=== PATIENT | female | born 1990 | race Two or more races ===

== ENCOUNTER 2018-04-06 20:18 | Emergency (ER) | payer SELFPAY ==
[2018-04-06] MEDS ORDERED: MORPHINE SULFATE 10 MG/ML INJ IV ONE (21:02)
[2018-04-06] MEDS ORDERED: NORMAL SALINE 1000 ML 1,000 ML IV ONE (21:02)
[2018-04-06] MEDS ORDERED: ONDANSETRON HCL INJ/PF 4 MG/2 ML SDV IV ONE (21:02)
--- NOTE | 2018-04-06 21:04 | ER Document Report ---
ED GI/ - General Chief Complaint: Abdominal Pain Stated Complaint: abdominal pain Time Seen by Provider: 04/06/18 20:48 Notes: Patient is a 28-year-old female that comes to the emergency department for chief complaint of a swollen area over the right abdomen/pelvis. She started noticing this about 7 days ago. She states that she has had some abdominal pain, she has vomited twice today. She vomited yesterday as well. She reports some upper abdominal pain now as well. She denies fever or chills, vaginal bleeding or discharge, dysuria. Past medical history of . Denies any medical history otherwise. Patient is Australian-speaking, brought her friend, requesting he translate for her. - Related Data Allergies/Adverse Reactions: No Known Allergies Allergy (Verified 04/06/18 20:20) Past Medical History - General Information source: Patient, Relative - Social History Smoking Status: Never Smoker Chew tobacco use (# tins/day): No Drug Abuse: None Lives with: Family Family History: Reviewed & Not Pertinent Patient has suicidal ideation: No Patient has homicidal ideation: No - Medical History Medical History: Negative Renal/ Medical History: Denies: Hx Peritoneal Dialysis Surgical Hx: Negative - Immunizations Immunizations up to date: Yes Hx Diphtheria, Pertussis, Tetanus Vaccination: Yes Review of Systems - Review of Systems Constitutional: No symptoms reported EENT: No symptoms reported Cardiovascular: No symptoms reported Respiratory: No symptoms reported Gastrointestinal: See HPI Genitourinary: See HPI Female Genitourinary: No symptoms reported Musculoskeletal: No symptoms reported Skin: No symptoms reported Hematologic/Lymphatic: No symptoms reported Neurological/Psychological: No symptoms reported Physical Exam - Vital signs Vitals: Temp Pulse Resp BP Pulse Ox 98.7 F 67 18 123/65 98 04/06/18 20:38 04/06/18 20:38 04/06/18 20:38 04/06/18 20:38 04/06/18 20:38 - Notes Notes: GENERAL: Alert, interacts well. No acute distress. HEAD: Normocephalic, atraumatic. EYES: Pupils equal, round, and reactive to light. Extraocular movements intact. ENT: Oral mucosa moist, tongue midline. Oropharynx unremarkable. Airway patent. Nares patent, no nasal septal hematoma, TM's intact. NECK: Full range of motion. Supple. Trachea midline. LUNGS: Clear to auscultation bilaterally, no wheezes, rales, or rhonchi. No respiratory distress. HEART: Regular rate and rhythm. No murmur ABDOMEN: Tenderness in the right pelvic area which is specific and reproducible. No McBurney's tenderness. No guarding of the abdomen. Nontender abdomen otherwise. No distention. Normal bowel sounds. GENITOURINARY: Deferred EXTREMITIES: Moves all 4 extremities spontaneously. No edema, normal radial and dorsalis pedis pulses bilaterally. No cyanosis. BACK: no cervical, thoracic, lumbar midline tenderness. No saddle anesthesia, normal distal neurovascular exam. NEUROLOGICAL: Alert and oriented x3. Normal speech. [cranial nerves II through XII grossly intact]. PSYCH: Normal affect, normal mood. SKIN: Warm, dry, normal turgor. No rashes or lesions noted. Course - Re-evaluation Re-evalutation: Patient is alert and well-appearing. She does have right pelvic examination tenderness, however McBurney's point is nontender, abdomen is benign, there is no guarding. Patient states she had upper abdominal pain and vomiting but her upper abdomen is benign. CBC, chemistry, lipase, urinalysis are all unremarkable. Ultrasound does show multiple cyst on the right ovary without mass, large cyst, free fluid, or torsion. I discussed this with patient in detail. I discussed recommendations, follow-up, and return precautions with patient in detail. Answered questions to the best of my ability. Asymptomatic on my reevaluation. Patient and significant other state satisfaction and agreement. Stable at time of discharge. - Vital Signs Vital signs: Temp Pulse Resp BP Pulse Ox 98.2 F 69 18 128/72 H 99 04/07/18 00:17 04/07/18 00:17 04/07/18 00:17 04/07/18 00:17 04/07/18 00:17 - Laboratory Result Diagrams: 04/06/18 21:27 04/06/18 21:27 Laboratory results interpreted by me: 04/06/18 04/06/18 21:27 21:27 Carbon Dioxide 21 L Creatinine 0.48 L Urine Urobilinogen 2.0 H Ur Leukocyte Esterase TRACE H Discharge - Discharge Clinical Impression: Lower abdominal pain Disposition: HOME, SELF-CARE Additional Instructions: Narvaez ecografa muestra que tiene quistes en el ovario derecho. Estos pueden causar dolor, keshia son pequeos y deben desaparecer solos con el tiempo. No se observ nina otros malos descubrimientos. [place] el Phenergan para las nuseas, tome el naproxeno para el dolor si es necesario. Adrian un seguimiento con la referencia de la oficina indicada para obtener ms informacin. Regrese si empeora (si tiene un dolor intenso que empeora, no puede dejar de vomitar, tiene fiebre o si algo no est yan). Prescriptions: Naproxen 500 mg PO BID PRN #20 tablet PRN Reason: Promethazine HCl [Phenergan 25 mg Tablet] 25 mg PO Q6H PRN #20 tablet PRN Reason: Referrals: [facility] [Provider Group] - Follow up as needed
[2018-04-06 21:48] LABS: ABSOLUTE BASOPHILS # (AUTO) 0.1 10^3/uL (0.0-0.2); ABSOLUTE EOSINOPHILS # (AUTO) 0.1 10^3/uL (0.0-0.6); ABSOLUTE LYMPHOCYTES (AUTO) 2.4 10^3/uL (0.5-4.7); ABSOLUTE MONOCYTES (AUTO) 0.8 10^3/uL (0.1-1.4); ABSOLUTE NEUT (AUTO) 2.7 10^3/uL (1.7-8.2); EOSINOPHILS % (AUTO) 2.3 % (0-6); HEMATOCRIT 37.6 % (36.0-47.0); HEMOGLOBIN 13.1 g/dL (12.0-15.5); LYMPHOCYTES % (AUTO) 39.1 % (13-45); MEAN CORPUSCULAR HEMOGLOBIN 32.9 pg (27.0-33.4); MEAN CORPUSCULAR HGB CONC 34.8 g/dL (32.0-36.0); MEAN CORPUSCULAR VOLUME 94 fl (80-97); MONOCYTES % (AUTO) 12.6 % (3-13); PLATELET COUNT 281 10^3/uL (150-450); RED BLOOD COUNT 3.99 10^6/uL (3.72-5.28); RED CELL DISTRIBUTION WIDTH 13.3 % (11.5-14.0); TOTAL CELLS COUNTED % (AUTO) 100 %
[2018-04-06 21:53] LABS: APPEARANCE,URINE SLIGHTLY-CLOUDY; BILIRUBIN,URINE NEGATIVE (NEGATIVE); COLOR,URINE YELLOW; GLUCOSE, URINE NEGATIVE (NEGATIVE); KETONES,URINE NEGATIVE (NEGATIVE); LEUKOCYTE ESTERASE,URINE TRACE (NEGATIVE); NITRITE,URINE NEGATIVE (NEGATIVE); PROTEIN,URINE NEGATIVE (NEGATIVE); URINE SPECIFIC GRAVITY 1.029
[2018-04-06 22:10] LABS: ALANINE AMINOTRANSFERASE 35 U/L (9-52); ALBUMIN 4.3 g/dL (3.5-5.0); ALKALINE PHOSPHATASE 122 U/L (38-126); ANION GAP 10 (5-19); ASPARTATE AMINO TRANSFERASE 28 U/L (14-36); BILIRUBIN,DIRECT 0.1 mg/dL (0.0-0.4); BILIRUBIN,TOTAL 0.5 mg/dL (0.2-1.3); BLOOD UREA NITROGEN 12 mg/dL (7-20); CALCIUM 8.8 mg/dL (8.4-10.2); CARBON DIOXIDE 21 mmol/L (22-30); CHLORIDE 107 mmol/L (98-107); GLUCOSE 97 mg/dL (75-110); LIPASE 101.1 U/L (23-300); SODIUM 137.8 mmol/L (137-145); TOTAL PROTEIN 7.3 g/dL (6.3-8.2)
--- NOTE | 2018-04-06 23:45 | RADIOLOGY REPORT (SQ) ---
EXAM DESCRIPTION: US TRANSVAGINAL COMPLETED DATE/TME: 04/06/2018 21:02 CLINICAL HISTORY: 28 years, Female, swelling in right pelvis, pain, vomiting COMPARISON: None. TECHNIQUE: Transverse and longitudinal transvaginal sonographic images of the pelvis LIMITATIONS: None. FINDINGS: The uterus measures 9.4 x 5.4 x 4.0 cm. The endometrium measures 9.6 mm in thickness. The myometrium is homogenous. The right ovary measures 5.0 x 3.7 x 3.8 cm, the left 2.3 x 1.7 x 1.6 cm. Doppler and spectral analysis with color flow was utilized. Arterial and venous flow to both ovaries. No solid adnexal mass. Right ovarian cysts are noted, the largest measures 2.3 x 2.2 cm, likely a dominant follicle. No solid adnexal mass. No free fluid IMPRESSION: Follicular change to the right ovary. Remainder unremarkable copyright 2010 [employer]- All Rights Reserved
[2018-04-06] MEDS ORDERED: HYDROCODONE/ACETAMINOPHEN 5-325 MG (6 TAB/ER DISP) PO PRN (23:59)
[2018-04-07 00:18] VITALS: BP 128/72
== END 2018-04-07 00:19 | disposition home or self-care (01) ==
LOC: ER 20:18
DX: R10.30 Lower abdominal pain, unspecified (principal); R19.00 Intra-abdominal and pelvic swelling, mass and lump, unspecified site; R11.10 Vomiting, unspecified
CPT/HCPCS: 99284; 96361; 96374; 96375; 36415; 83690; 85025; 81025; 80053; 81001; 76830; 93976; J2270; J2405; J7030

== ENCOUNTER 2018-05-19 18:51 | Emergency (ER) | payer SELFPAY ==
--- NOTE | 2018-05-19 21:44 | ER Document Report ---
ED Medical Screen (RME) - General Chief Complaint: Vaginal Pain Stated Complaint: VAGINAL PAIN Time Seen by Provider: 05/19/18 21:36 Notes: Patient is a 28-year-old female coming in today with chief complaint that she fell and possibly injured her pelvic area. She has had very little bit of bleeding since the injury. It seems that she is concerned whether her intrauterine device fell out as a result of the fall. I have treated and performed a rapid initial assessment of this patient. A comprehensive ED assessment and evaluation of the patient, analysis of test results and completion of medical decision making process will be conducted by additional ED providers. PHYSICAL EXAMINATION: GENERAL: Well-appearing, well-nourished and in no acute distress. A&Ox4. Answers questions appropriately. LUNGS: Breath sounds clear to auscultation bilaterally and equal. No wheezes rales or rhonchi. HEART: Regular rate and rhythm without murmurs, rubs, gallops. ABDOMEN: Soft, nondistended abdomen. No guarding, no rebound. Normal bowel sounds present. No CVA tenderness bilaterally. + mild epigastric tenderness (cannot elicit thorough abd exam w/o table, however). Extremities: No cyanosis, clubbing, or edema b/l. NEUROLOGICAL: Normal speech, normal gait. PSYCH: Normal mood, normal affect. TRAVEL OUTSIDE OF THE [place] IN LAST 30 DAYS: No - Related Data Allergies/Adverse Reactions: No Known Allergies Allergy (Verified 05/19/18 18:52) Past Medical History Renal/ Medical History: Denies: Hx Peritoneal Dialysis - Immunizations Immunizations up to date: Yes Hx Diphtheria, Pertussis, Tetanus Vaccination: Yes Physical Exam - Vital signs Vitals: Temp Pulse Resp BP Pulse Ox 99.8 F 99 16 110/51 L 97 05/19/18 19:53 05/19/18 19:53 05/19/18 19:53 05/19/18 19:53 05/19/18 19:53 Course - Vital Signs Vital signs: Temp Pulse Resp BP Pulse Ox 99.8 F 99 16 110/51 L 97 05/19/18 19:53 05/19/18 19:53 05/19/18 19:53 05/19/18 19:53 05/19/18 19:53
[2018-05-19 22:23] LABS: APPEARANCE,URINE CLOUDY; BILIRUBIN,URINE NEGATIVE (NEGATIVE); COLOR,URINE AMBER; GLUCOSE, URINE NEGATIVE (NEGATIVE); KETONES,URINE NEGATIVE (NEGATIVE); LEUKOCYTE ESTERASE,URINE SMALL (NEGATIVE); NITRITE,URINE NEGATIVE (NEGATIVE); PROTEIN,URINE 100 mg/dL (NEGATIVE); URINE SPECIFIC GRAVITY 1.031
--- NOTE | 2018-05-20 01:57 | ER Document Report ---
ED GI/ - General Chief Complaint: Vaginal Pain Stated Complaint: VAGINAL PAIN Time Seen by Provider: 05/20/18 01:34 Primary Care Provider: SAVANNA BROWN [Primary Care Provider] - Follow up as needed Mode of Arrival: Ambulatory Information source: Patient Notes: HISTORY OF PRESENT ILLNESS: Patient is a 28-year-old female with no significant past medical history who p resents with vaginal pain after mechanical fall 2 days ago. Of note, the patient reports having an IUD placed 2 years ago and is concerned that she could have either injured this area or the IUD could have fallen out. She denies seeing passage of tissue or foreign bodies. Location: Vaginal Onset: Sudden 2 days ago Alleviation: None Provocation: None, stimulation Quality: Aching, burning Radiation: None Severity: Mild Timing: Constant History of abdominal surgery: None Associated symptoms: Slight vaginal bleeding but no discharge Last bowel movement: Today and normal Last menstrual period: "I do not remember" REVIEW OF SYSTEMS: CONSTITUTIONAL : Denies fever or chills, no sweats. Denies recent illness. EENT: Denies eye, ear, throat, or mouth pain or symptoms. Denies nasal or sinus congestion. CARDIOVASCULAR: Denies chest pain. Denies swelling of the legs. RESPIRATORY: Denies cough, cold, or chest congestion. Denies shortness of breath or difficulty breathing. Denies wheezing. GASTROINTESTINAL: Positive for abdominal pain. Denies nausea, vomiting, or diarrhea. Denies constipation. GENITOURINARY: Denies difficulty urinating, painful urination, burning, frequency, or blood in urine. FEMALE GENITOURINARY: Positive for vaginal bleeding. Denies vaginal discharge. MUSCULOSKELETAL: Denies neck or back pain or joint pain or swelling. SKIN: Denies rash or skin lesions. HEMATOLOGIC : Denies easy bruising or bleeding. LYMPHATIC: Denies swollen, enlarged glands. NEUROLOGICAL: Denies altered mental status or loss of consciousness. Denies headache. Denies weakness or paralysis or loss of use of either side. Denies problems with gait or speech. Denies sensory or motor loss. PSYCHIATRIC: Denies anxiety or stress or depression. All other systems reviewed and negative. PHYSICAL EXAMINATION: GENERAL: Well-appearing, well-nourished and in no acute distress. HEAD: Atraumatic, normocephalic. No scalp deformity, depression, or crepitance. EYES: Pupils are 3 mm and equal/round/reactive to light, extraocular movements intact, sclera anicteric, conjunctiva are normal. ENT: Nares patent bilaterally, oropharynx. Moist mucous membranes. No tonsil hypertrophy. NECK: Normal range of motion, supple without lymphadenopathy. LUNGS: Breath sounds present, equal, and clear to auscultation bilaterally. No wheezes, rales, or rhonchi. HEART: Regular rate and rhythm without murmurs, rubs, or gallops. 2+ peripheral pulses. Normal capillary refill. ABDOMEN: Soft, nontender, nondistended. Normoactive bowel sounds. No guarding, no rebound. No masses appreciated. BACK: Normal contour, no midline tenderness. Rectal exam deferred. GENITAL/PELVIC: Patient genitalia appears slightly erythematous including the labia majora and minora, dry blood on the introitus without active bleeding, no visible foreign body. EXTREMITIES: Normal range of motion, no pitting or edema. No cyanosis. NEUROLOGICAL: No focal neurological deficits. Moves all extremities spontaneo usly and on command. PSYCH: Normal mood, normal affect. No suicidal thoughts/ideations. No homocidal thoughts/ideations. No hallucinations. SKIN: Warm, dry, normal turgor, no rashes or lesions noted. ASSESSMENT AND PLAN: This patient is a 28-year-old female who presents with vaginal pain and bleeding after mechanical fall. Patient is concerned her IUD could have been dislodged. 1. Will obtain urine, vaginal ultrasound, and reassess. 2. Will give oral hydrocodone for pain relief. TRAVEL OUTSIDE OF THE [place] IN LAST 30 DAYS: No - Related Data Allergies/Adverse Reactions: No Known Allergies Allergy (Verified 05/19/18 18:52) Past Medical History - General Information source: Patient - Social History Smoking Status: Never Smoker Chew tobacco use (# tins/day): No Frequency of alcohol use: None Drug Abuse: None Lives with: Family Family History: Reviewed & Not Pertinent Patient has suicidal ideation: No Patient has homicidal ideation: No - Medical History Medical History: Negative - Past Medical History Cardiac Medical History: Reports: None Pulmonary Medical History: Reports: None EENT Medical History: Reports: None Neurological Medical History: Reports: None Endocrine Medical History: Reports: None Renal/ Medical History: Reports: None. Denies: Hx Peritoneal Dialysis Malignancy Medical History: Reports: None GI Medical History: Reports: None Musculoskeletal Medical History: Reports None Skin Medical History: Reports None Psychiatric Medical History: Reports: None Traumatic Medical History: Reports: None Infectious Medical History: Reports: None Surgical Hx: Negative Past Surgical History: Reports: None - Immunizations Immunizations up to date: Yes Hx Diphtheria, Pertussis, Tetanus Vaccination: Yes History of Influenza Vaccine for 12/2016 - 05/2017 Season: Unknown Physical Exam - Vital signs Vitals: Temp Pulse Resp BP Pulse Ox 99.8 F 99 16 110/51 L 97 05/19/18 19:53 05/19/18 19:53 05/19/18 19:53 05/19/18 19:53 05/19/18 19:53 Course - Re-evaluation Re-evalutation: 05/20/18 04:15 Ultrasound shows no evidence of retained intrauterine device. Patient will be referred back to her oil well perforator operator. She will be discharged home with return precautions and follow-up. Both the patient and her , with aid of electronic sugar cane planter machine operator, voiced understanding and agreeing with the plan. - Vital Signs Vital signs: Temp Pulse Resp BP Pulse Ox 98.9 F 92 18 117/70 98 05/20/18 01:27 05/20/18 01:27 05/20/18 01:27 05/20/18 01:27 05/20/18 01:27 - Laboratory Laboratory results interpreted by me: 05/19/18 21:40 Urine Protein 100 H Urine Blood LARGE H Urine Urobilinogen 4.0 H Ur Leukocyte Esterase SMALL H - Diagnostic Test Radiology reviewed: Image reviewed, Reports reviewed Discharge - Discharge Clinical Impression: Vaginal pain Condition: Good Disposition: HOME, SELF-CARE Instructions: Abdominal Pain ([facility]) Additional Instructions: You have been evaluated in the Emergency Department for vaginal pain. While here, you had an ultrasound that did not show an IUD, which means it probably came out. It is now safe to be discharged home. Please follow-up with your oil well perforator operator as instructed in 1 week to be rechecked. Return to the Emergency Department if you experience worsening bleeding, worsening pain, or any other concerning symptoms. Prescriptions: Tramadol HCl [Ultram 50 mg Tablet] 50 mg PO Q6HP PRN #28 tablet PRN Reason: For Pain Referrals: LOCALMD,NO [Primary Care Provider] - Follow up as needed Print Language: Georgian
[2018-05-20] MEDS ORDERED: HYDROCODONE/ACETAMINOPHEN 5-325 MG TABLET PO ONE (02:38)
--- NOTE | 2018-05-20 04:11 | RADIOLOGY REPORT (SQ) ---
EXAM DESCRIPTION: US TRANSVAGINAL COMPLETED DATE/TME: 05/20/2018 02:38 CLINICAL HISTORY: 28 years, Female, Vaginal bleeding COMPARISON: None. TECHNIQUE: Transverse and longitudinal transvaginal sonographic images of the pelvis LIMITATIONS: None. FINDINGS: The uterus measures 8.7 x 5.7 x 4.1 cm. The endometrium measures 10 mm in thickness. Myometrium is homogenous. Nabothian cysts are noted. Right ovary measures 3.9 x 3.7 x 3.7 cm. Left ovary measures 2.6 x 2.2 x 1.8 cm. Doppler and spectral analysis with color flow shows arterial and venous flow to both ovaries. Simple appearing right ovarian cyst/dominant follicle measuring 3.7 x 3.2 cm. No solid adnexal mass. No free fluid IMPRESSION: Probable dominant follicle of the right ovary. Remainder unremarkable copyright 2010 [employer]- All Rights Reserved
[2018-05-20 04:47] VITALS: BP 112/65
== END 2018-05-20 04:44 | disposition home or self-care (01) ==
LOC: ER 18:51
DX: R10.2 Pelvic and perineal pain (principal); N93.9 Abnormal uterine and vaginal bleeding, unspecified
CPT/HCPCS: 76830; 81001; 81025; 99284

== ENCOUNTER 2018-05-21 12:06 | Emergency (ER) | payer SELFPAY ==
[2018-05-21 12:14] VITALS: BP 117/63
[2018-05-21] MEDS ORDERED: OXYCODONE-ACETAMINOPHEN 5-325 MG TABLET PO ONE (13:18)
--- NOTE | 2018-05-21 13:18 | ER Document Report ---
ED Medical Screen (RME) - General Chief Complaint: Vaginal Pain Stated Complaint: ABSCESS/VAGINAL AREA Time Seen by Provider: 05/21/18 13:15 Primary Care Provider: STEPHANIE,SAVANNA [Primary Care Provider] - Follow up as needed Notes: Patient is a 28-year-old female that presents to the emergency department for chief complaint of vaginal swelling and drainage. Patient was seen recently, placed on tramadol, advised to follow-up with [facility], has been having worsening pain since then came back to the ED today, patient is primarily Tuvaluan-speaking. ROS: Other than noted above, the 12 point review of systems was reviewed with the patient and were negative, all pertinent findings are included in the HPI. PHYSICAL EXAMINATION: Vital signs reviewed. GENERAL: Well-appearing, well-nourished and in no acute distress. HEAD: Atraumatic, normocephalic. EYES: Pupils equal round extraocular movements intact, conjunctiva are normal. ENT: Nares patent NECK: Normal range of motion CV: Heart regular rate and rhythm LUNGS: No respiratory distress Musculoskeletal: Normal range of motion NEUROLOGICAL: Normal speech PSYCH: Normal mood, normal affect. MDM: Patient seen and examined for rapid initial assessment. Vital signs reviewed. A comprehensive ED assessment and evaluation of the patient, analysis of test results and completion of the medical decision making process will be conducted by additional ED providers. *Note is created using voice recognition software and may contain spelling, syntax or grammatical errors. TRAVEL OUTSIDE OF THE [place] IN LAST 30 DAYS: No - Related Data Allergies/Adverse Reactions: No Known Allergies Allergy (Verified 05/19/18 18:52) Past Medical History Renal/ Medical History: Denies: Hx Peritoneal Dialysis - Immunizations Immunizations up to date: Yes Hx Diphtheria, Pertussis, Tetanus Vaccination: Yes History of Influenza Vaccine for 12/2016 - 05/2017 Season: Unknown Physical Exam - Vital signs Vitals: Temp Pulse Resp BP Pulse Ox 99.0 F 105 H 16 117/63 96 05/21/18 12:12 05/21/18 12:12 05/21/18 12:12 05/21/18 12:12 05/21/18 12:12 Course - Vital Signs Vital signs: Temp Pulse Resp BP Pulse Ox 99.0 F 105 H 16 117/63 96 05/21/18 12:12 05/21/18 12:12 05/21/18 12:12 05/21/18 12:12 05/21/18 12:12 Doctor's Discharge - Discharge Referrals: LOCALMD,NO [Primary Care Provider] - Follow up as needed
[2018-05-21] MEDS ORDERED: NORMAL SALINE 1000 ML 1,000 ML IV ONE (15:15)
[2018-05-21] MEDS ORDERED: FENTANYL CITRATE INJ/PF 100 MCG/2 ML AMPUL IV ONE (15:15)
[2018-05-21] MEDS ORDERED: CLINDAMYCIN 600 MG/D5W RTU 600 MG/50 ML RTUPB IV ONE (15:21)
--- NOTE | 2018-05-21 15:23 | ER Document Report ---
ED GI/ - General Chief Complaint: Vaginal Pain Stated Complaint: ABSCESS/VAGINAL AREA Time Seen by Provider: 05/21/18 13:15 Primary Care Provider: CASSIE RODRÍGUEZ MD [ACTIVE STAFF] - Follow up in 1 week Mode of Arrival: Ambulatory Information source: Patient Notes: Patient states that she fell in the shower 6 days ago injuring the vaginal area. Patient states that she developed increased pain and swelling to the vaginal area 3 days ago. Patient complains of pain with urination and blood in the urine. Patient denies any fever. TRAVEL OUTSIDE OF THE [place] IN LAST 30 DAYS: No - HPI Patient complains to provider of: Dysuria, Vaginal pain Onset: Other - 6 days ago Timing/Duration: Worse Quality of pain: Sharp Pain Level: 5 Vaginal bleeding (Compared to normal period): Chicken Raiser Associated symptoms: Dysuria, Urinary frequency, Vaginal discharge. denies: Fever, Urinary hesitancy Exacerbated by: Movement Relieved by: Denies Similar symptoms previously: No Recently seen / treated by doctor: Yes - Related Data Allergies/Adverse Reactions: No Known Allergies Allergy (Verified 05/19/18 18:52) Past Medical History - General Information source: Patient - Social History Smoking Status: Never Smoker Frequency of alcohol use: None Drug Abuse: None Occupation: None Lives with: Family Family History: Reviewed & Not Pertinent Patient has suicidal ideation: No Patient has homicidal ideation: No - Medical History Medical History: Negative Renal/ Medical History: Denies: Hx Peritoneal Dialysis Surgical Hx: Negative - Immunizations Immunizations up to date: Yes Hx Diphtheria, Pertussis, Tetanus Vaccination: Yes Review of Systems - Review of Systems Constitutional: No symptoms reported EENT: No symptoms reported Cardiovascular: No symptoms reported Respiratory: No symptoms reported. denies: Cough Gastrointestinal: No symptoms reported. denies: Abdominal pain, Vomiting Genitourinary: Dysuria, Frequency Female Genitourinary: Vaginal discharge, Vaginal bleeding Musculoskeletal: No symptoms reported Skin: Other - Swelling to the perineum Hematologic/Lymphatic: No symptoms reported Neurological/Psychological: No symptoms reported Physical Exam - Vital signs Vitals: Temp Pulse Resp BP Pulse Ox 99.0 F 105 H 16 117/63 96 05/21/18 12:12 05/21/18 12:12 05/21/18 12:12 05/21/18 12:12 05/21/18 12:12 - General General appearance: Appears well, Alert In distress: None - HEENT Head: Normocephalic Eyes: Normal Conjunctiva: Normal Neck: Normal, Supple. No: Lymphadenopathy - Respiratory Respiratory status: No respiratory distress Chest status: Nontender Breath sounds: Normal. No: Rales, Rhonchi, Stridor, Wheezing Chest palpation: Normal - Cardiovascular Rhythm: Tachycardia Heart sounds: S1 appreciated, S2 appreciated Murmur: No - Abdominal Inspection: Normal Distension: No distension Bowel sounds: Normal - Genitourinary External exam: Other - Patient with foul-smelling spontaneously draining abscess to the clitoris and urethral area - Back Back: Normal, Nontender - Extremities General upper extremity: Normal inspection, Normal strength General lower extremity: Normal inspection, Normal strength - Neurological Neuro grossly intact: Yes Cognition: Normal Heidrick Coma Scale Eye Opening: Spontaneous Heidrick Coma Scale Verbal: Oriented Heidrick Coma Scale Motor: Obeys Commands Heidrick Coma Scale Total: 15 - Psychological Associated symptoms: Normal affect, Normal mood - Skin Skin Temperature: Warm Skin Moisture: Dry Skin irregularity: Abscess - Large abscess to peritoneum involving the clitoris and urethral area Course - Re-evaluation Re-evalutation: 05/21/18 15:10 Dr. Mcmanus to bedside for consultation, recommends consultation with night stocker for further evaluation and management. 05/21/18 15:15 Attempted consultation with BOILER FITTER who was currently with a patient, bar machine operator production advises calling back in 15 minutes. 05/21/18 15:[address] Rodríguez who agrees to come and evaluate patient in ER. 05/21/18 16:01 On repeat examination, patient's abscess has significantly drained a large amount of purulent drainage appears to have come from the left labia minora. Patient continues with mild swelling to the clitoris and urethral area as well as the left labia minora. Dr. Rodríguez to bedside for examination. Recommend sitz bath at least 3 times a day placing patient on pain medication as well as Bactrim and having her follow- up in the office in 1 week. Recommends using a chair spring assembler at a low setting to dry area and using ice packs for comfort. 05/21/18 16:06 - Vital Signs Vital signs: Temp Pulse Resp BP Pulse Ox 99.0 F 105 H 16 117/63 96 05/21/18 12:12 05/21/18 12:12 05/21/18 12:12 05/21/18 12:12 05/21/18 12:12 - Laboratory Result Diagrams: 05/21/18 16:20 05/21/18 16:20 Laboratory results interpreted by me: 05/21/18 05/21/18 05/21/18 15:35 16:20 16:20 WBC 15.6 H Seg Neutrophils % 86.2 H Lymphocytes % 5.6 L Absolute Neutrophils 13.5 H Glucose 122 H Urine Protein 100 H Urine Ketones 20 H Urine Blood LARGE H Urine Nitrite POSITIVE H Urine Urobilinogen 2.0 H Ur Leukocyte Esterase LARGE H Labs- Entire Visit 05/21/18 05/21/18 05/21/18 15:35 16:20 16:20 WBC 15.6 H RBC 3.83 Hgb 12.6 Hct 36.1 MCV 94 MCH 32.8 MCHC 34.8 RDW 13.2 Plt Count 318 Seg Neutrophils % 86.2 H Lymphocytes % 5.6 L Monocytes % 7.9 Eosinophils % 0.0 Basophils % 0.3 Absolute Neutrophils 13.5 H Absolute Lymphocytes 0.9 Absolute Monocytes 1.2 Absolute Eosinophils 0.0 Absolute Basophils 0.0 Sodium 137.1 Potassium 3.8 Chloride 99 Carbon Dioxide 28 Anion Gap 10 BUN 9 Creatinine 0.52 Est GFR ( Amer) > 60 Est GFR (Non-Af Amer) > 60 Glucose 122 H Calcium 8.8 Serum HCG, Qual Urine Color AMY Urine Appearance CLOUDY Urine pH 6.0 Ur Specific [place] 1.019 Urine Protein 100 H Urine Glucose (UA) NEGATIVE Urine Ketones 20 H Urine Blood LARGE H Urine Nitrite POSITIVE H Urine Bilirubin NEGATIVE Urine Urobilinogen 2.0 H Ur Leukocyte Esterase LARGE H Urine WBC (Auto) >182 Urine RBC (Auto) >182 Urine Bacteria (Auto) 1+ Urine WBC Clumps FEW Squamous Epi Cells Auto 3 Urine Mucus (Auto) MANY Urine Ascorbic Acid NEGATIVE 05/21/18 16:20 WBC RBC Hgb Hct MCV MCH MCHC RDW Plt Count Seg Neutrophils % Lymphocytes % Monocytes % Eosinophils % Basophils % Absolute Neutrophils Absolute Lymphocytes Absolute Monocytes Absolute Eosinophils Absolute Basophils Sodium Potassium Chloride Carbon Dioxide Anion Gap BUN Creatinine Est GFR ( Amer) Est GFR (Non-Af Amer) Glucose Calcium Serum HCG, Qual NEGATIVE Urine Color Urine Appearance Urine pH Ur Specific [place] Urine Protein Urine Glucose (UA) Urine Ketones Urine Blood Urine Nitrite Urine Bilirubin Urine Urobilinogen Ur Leukocyte Esterase Urine WBC (Auto) Urine RBC (Auto) Urine Bacteria (Auto) Urine WBC Clumps Squamous Epi Cells Auto Urine Mucus (Auto) Urine Ascorbic Acid Discharge - Discharge Clinical Impression: Labial abscess UTI (urinary tract infection) Qualifiers: Urinary tract infection type: site unspecified Hematuria presence: with hematuria Qualified Code(s): N39.0 - Urinary tract infection, site not specified Condition: Stable Disposition: HOME, SELF-CARE Instructions: Abscess ([facility]), Oral Narcotic Medication ([facility]), Trimethoprim-Sulfa ([facility]), Urinary Tract Infection ([facility]) Additional Instructions: Return immediately for any new or worsening symptoms Followup with Dr. Rodríguez in 1 week, call Thursday for an appointment time Soak in a sitz bath with Epson salts at least 3 times a day, have only 3 inches of water in the bathtub with a half a cup of Epsom salts and dissolve the salt into the water. After your bath use a chair spring assembler on the low setting to dry the area. You may use ice packs to help with discomfort topically for 15-20 minutes as frequent as every 2 hours while awake. Do not take the tramadol if you are taking the Percocet, only take one medication or the other. Prescriptions: Oxycodone HCl/Acetaminophen [Percocet 5-325 mg Tablet] 1 tab PO ASDIR PRN #15 tablet PRN Reason: Sulfamethoxazole/Trimethoprim [Bactrim Ds Tablet] 1 each PO BID #20 tablet Referrals: CASSIE RODRÍGUEZ MD [ACTIVE STAFF] - Follow up in 1 week Print Language: Danish
[2018-05-21 16:07] LABS: APPEARANCE,URINE CLOUDY; BILIRUBIN,URINE NEGATIVE (NEGATIVE); COLOR,URINE AMBER; GLUCOSE, URINE NEGATIVE (NEGATIVE); KETONES,URINE 20 mg/dL (NEGATIVE); LEUKOCYTE ESTERASE,URINE LARGE (NEGATIVE); NITRITE,URINE POSITIVE (NEGATIVE); PROTEIN,URINE 100 mg/dL (NEGATIVE); URINE SPECIFIC GRAVITY 1.019
[2018-05-21 16:53] LABS: ABSOLUTE LYMPHOCYTES (AUTO) 0.9 10^3/uL (0.5-4.7); ABSOLUTE MONOCYTES (AUTO) 1.2 10^3/uL (0.1-1.4); ABSOLUTE NEUT (AUTO) 13.5 10^3/uL (1.7-8.2); BASOPHILS % (AUTO) 0.3 % (0-2); HEMATOCRIT 36.1 % (36.0-47.0); HEMOGLOBIN 12.6 g/dL (12.0-15.5); LYMPHOCYTES % (AUTO) 5.6 % (13-45); MEAN CORPUSCULAR HEMOGLOBIN 32.8 pg (27.0-33.4); MEAN CORPUSCULAR HGB CONC 34.8 g/dL (32.0-36.0); MEAN CORPUSCULAR VOLUME 94 fl (80-97); MONOCYTES % (AUTO) 7.9 % (3-13); PLATELET COUNT 318 10^3/uL (150-450); RED BLOOD COUNT 3.83 10^6/uL (3.72-5.28); RED CELL DISTRIBUTION WIDTH 13.2 % (11.5-14.0); SEGMENTED NEUTROPHILS % (AUTO) 86.2 % (42-78); TOTAL CELLS COUNTED % (AUTO) 100 %; WHITE BLOOD COUNT 15.6 10^3/uL (4.0-10.5)
[2018-05-21 17:06] LABS: ANION GAP 10 (5-19); BLOOD UREA NITROGEN 9 mg/dL (7-20); CALCIUM 8.8 mg/dL (8.4-10.2); CARBON DIOXIDE 28 mmol/L (22-30); CHLORIDE 99 mmol/L (98-107); GLUCOSE 122 mg/dL (75-110); POTASSIUM 3.8 mmol/L (3.6-5.0); SODIUM 137.1 mmol/L (137-145)
[2018-05-21] MEDS ORDERED: SULFAMETHOXAZOLE/TRIMETHOPRIM 800-160 MG TABLET PO ONE (17:16)
== END 2018-05-21 17:28 | disposition home or self-care (01) ==
LOC: ER 12:06
DX: N39.0 Urinary tract infection, site not specified (principal); N76.4 Abscess of vulva; R10.2 Pelvic and perineal pain
CPT/HCPCS: 99283; 96375; 96365; 36415; 87040; 87086; 87070; 87205; 84703; 85025; 87075; 87077; 80048; 81001; J3010; J7030